=== PATIENT | male | born 1970 | race Caucasian/White ===

== ENCOUNTER 2016-08-26 02:56 | Inpatient (IN) | payer OTHER ==
[~2016-08-26] VITALS: Ht 188 cm; Wt 158.8 kg
[2016-08-26 04:27] LABS: BUN/CREATININE RATIO 19 (0-10)
[2016-08-26 04:28] LABS: HEMOGLOBIN 16.6 gm/dl (14.0-17.5); RED BLOOD COUNT 5.38 M/UL (4.20-5.50); WHITE BLOOD COUNT 19.6 K/UL (4.5-11.0)
[2016-08-26] MEDS ORDERED: CHANTIX1 EACH PO (09:45)
[2016-08-26] MEDS ORDERED: NEURONTIN 300300 MG PO (09:45)
[2016-08-26] MEDS ORDERED: HYDROXYZINE HCL25 MG PO (09:46)
[2016-08-26] MEDS ORDERED: LISINOPRIL-HCT1 EAC1 PO (09:47)
[2016-08-26] MEDS ORDERED: GLUCOPHAGE1000 MG PO (09:48)
[2016-08-26] MEDS ORDERED: PANTOPRAZOLE SO40 MG PO (09:48)
[2016-08-27 06:35] LABS: HEMOGLOBIN 16.3 gm/dl (14.0-17.5); RED BLOOD COUNT 5.36 M/UL (4.20-5.50); WHITE BLOOD COUNT 16.5 K/UL (4.5-11.0)
[2016-08-27 06:43] LABS: BUN/CREATININE RATIO 16 (0-10)
[2016-08-28 05:48] LABS: HEMOGLOBIN 15.7 gm/dl (14.0-17.5); RED BLOOD COUNT 5.13 M/UL (4.20-5.50)
[2016-08-28 05:53] LABS: WHITE BLOOD COUNT 11.7 K/UL (4.5-11.0)
[2016-08-28 06:42] LABS: BUN/CREATININE RATIO 19 (0-10)
[2016-08-28] MEDS ORDERED: IBUPROFEN800 MG PO (15:00)
[2016-08-28] MEDS ORDERED: BACTRIM DS TAB1 EACH PO (15:00)
== END 2016-08-28 17:24 | disposition home or self-care (01) | DRG 581 ==
LOC: ER1 02:56 → M/S 05:15 → ZEROF 05:15 → M/S 13:55
PROVIDERS: Emergency Medicine; Family Medicine; Surgery; ADMIT Internal Medicine
PROC: 0J990ZZ Drainage of Buttock Subcutaneous Tissue and Fascia, Open Approach (ICD-10-PCS; principal; 2016-08-26 11:15)
DX: L02.31 Cutaneous abscess of buttock (principal); I10 Essential (primary) hypertension; G62.9 Polyneuropathy, unspecified; F17.210 Nicotine dependence, cigarettes, uncomplicated; Z88.0 Allergy status to penicillin; R73.03 Prediabetes
CPT/HCPCS: 10061; 36415; 80048; 80053; 80202; 82962; 83036; 83605; 85025; 85027; 87040; 87070; 87205; 96374; 96375; 96376; 99284; J1100; J1335; J1650; J2250; J2270; J2405; J2710; J3010; J3370; J7030; J7050; J7070; J7120; Q9962

== ENCOUNTER → 2016-08-29 | Outpatient (CLI) | payer OTHER ==
[~2016-08-29] MED LIST: BACTRIM DS TAB1 EACH PO; CHANTIX1 EACH PO; GLUCOPHAGE1000 MG PO; HYDROXYZINE HCL25 MG PO; IBUPROFEN800 MG PO; LISINOPRIL-HCT1 EAC1 PO; NEURONTIN 300300 MG PO; PANTOPRAZOLE SO40 MG PO
== END ==
LOC: OPSV 14:00
DX: L02.31 Cutaneous abscess of buttock (principal)
CPT/HCPCS: G0463

== ENCOUNTER → 2016-08-30 | Outpatient (CLI) | payer OTHER | LOC: OPSV 16:30 | DX: L02.91 Cutaneous abscess, unspecified (principal) | CPT/HCPCS: G0463 ==

== ENCOUNTER → 2016-08-31 | Outpatient (CLI) | payer OTHER | LOC: OPSV 16:30 | DX: L02.91 Cutaneous abscess, unspecified (principal) | CPT/HCPCS: G0463 ==

== ENCOUNTER → 2016-09-02 | Outpatient (CLI) | payer OTHER | LOC: OPSV 16:30 | DX: L02.91 Cutaneous abscess, unspecified (principal) | CPT/HCPCS: G0463 ==

== ENCOUNTER → 2016-09-03 | Outpatient (CLI) | payer OTHER | LOC: OPSV 09:00 | DX: Z48.00 Encounter for change or removal of nonsurgical wound dressing (principal); L02.31 Cutaneous abscess of buttock; E11.9 Type 2 diabetes mellitus without complications | CPT/HCPCS: G0463 ==

== ENCOUNTER → 2016-09-04 | Outpatient (CLI) | payer OTHER | LOC: OPSV 09:00 | DX: E11.628 Type 2 diabetes mellitus with other skin complications (principal); L02.31 Cutaneous abscess of buttock | CPT/HCPCS: G0463 ==

== ENCOUNTER → 2016-09-05 | Outpatient (CLI) | payer OTHER | LOC: OPSV 16:30 | DX: Z48.00 Encounter for change or removal of nonsurgical wound dressing (principal); E11.628 Type 2 diabetes mellitus with other skin complications; L02.31 Cutaneous abscess of buttock | CPT/HCPCS: G0463 ==

== ENCOUNTER → 2016-09-06 | Outpatient (CLI) | payer OTHER | LOC: OPSV 16:00 | DX: L02.91 Cutaneous abscess, unspecified (principal) | CPT/HCPCS: G0463 ==

== ENCOUNTER → 2016-09-07 | Outpatient (CLI) | payer OTHER | LOC: OPSV 09:56 | DX: Z48.00 Encounter for change or removal of nonsurgical wound dressing (principal); L02.31 Cutaneous abscess of buttock | CPT/HCPCS: G0463 ==

== ENCOUNTER → 2016-09-08 | Outpatient (CLI) | payer OTHER | LOC: OPSV 16:00 | DX: L02.91 Cutaneous abscess, unspecified (principal) | CPT/HCPCS: G0463 ==

== ENCOUNTER → 2016-09-09 | Outpatient (CLI) | payer OTHER | LOC: OPSV 09-01 16:30 | DX: L02.31 Cutaneous abscess of buttock (principal) | CPT/HCPCS: G0463 ==

== ENCOUNTER → 2016-09-10 | Outpatient (CLI) | payer OTHER | LOC: OPSV 08:44 | DX: L02.31 Cutaneous abscess of buttock (principal) | CPT/HCPCS: G0463 ==

== ENCOUNTER → 2016-09-11 | Outpatient (CLI) | payer OTHER | LOC: OPSV 08:41 | DX: Z48.00 Encounter for change or removal of nonsurgical wound dressing (principal); L02.31 Cutaneous abscess of buttock | CPT/HCPCS: G0463 ==

== ENCOUNTER → 2016-09-12 | Outpatient (CLI) | payer OTHER | LOC: OPSV 15:03 | DX: Z48.00 Encounter for change or removal of nonsurgical wound dressing (principal); L02.31 Cutaneous abscess of buttock | CPT/HCPCS: G0463 ==

== ENCOUNTER → 2016-09-14 | Outpatient (CLI) | payer OTHER | LOC: OPSV 09:04 | DX: L02.91 Cutaneous abscess, unspecified (principal) | CPT/HCPCS: G0463 ==

== ENCOUNTER → 2016-09-15 | Outpatient (CLI) | payer OTHER | LOC: OPSV 16:00 | DX: L02.91 Cutaneous abscess, unspecified (principal) | CPT/HCPCS: G0463 ==

== ENCOUNTER → 2016-09-16 | Outpatient (CLI) | payer OTHER | LOC: OPSV 09:00 | DX: L02.91 Cutaneous abscess, unspecified (principal) | CPT/HCPCS: G0463 ==

== ENCOUNTER → 2016-09-17 | Outpatient (CLI) | payer OTHER | LOC: OPSV 07:31 | DX: L02.31 Cutaneous abscess of buttock (principal) | CPT/HCPCS: G0463 ==

== ENCOUNTER → 2016-09-18 | Outpatient (CLI) | payer OTHER | LOC: OPSV 07:13 | DX: L02.31 Cutaneous abscess of buttock (principal) | CPT/HCPCS: G0463 ==

== ENCOUNTER → 2016-09-19 | Outpatient (CLI) | payer OTHER | LOC: OPSV 15:49 | DX: L02.31 Cutaneous abscess of buttock (principal) | CPT/HCPCS: G0463 ==

== ENCOUNTER → 2016-09-20 | Outpatient (CLI) | payer OTHER | LOC: OPSV 16:00 | DX: L02.91 Cutaneous abscess, unspecified (principal) | CPT/HCPCS: G0463 ==